=== PATIENT | male | born 2000 | race Caucasian/White ===

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

== ENCOUNTER 2018-06-09 18:15 | Emergency (ER) | payer MEDICAID ==
[~2018-06-09] VITALS: Ht 175.3 cm; Wt 73.2 kg
[2018-06-09 18:26] VITALS: BP 130/72
[2018-06-09] MEDS ORDERED: HYDROcodone/APAP 5/325 TABLET PO STA ×2 (19:35→19:51)
[2018-06-09] MEDS ORDERED: HYDROcodone/APAP 10/325 MG TABLET ONE (19:37)
== END 2018-06-09 19:58 | disposition home or self-care (01) ==
LOC: ED 19:11
DX: M54.16 Radiculopathy, lumbar region (principal)
CPT/HCPCS: 72202; 72220; 99284